=== PATIENT | male | born 1985 | race Caucasian/White ===

== ENCOUNTER 2018-12-26 06:57 | Emergency (ER) | payer OTHER ==
--- NOTE | 2018-12-26 10:47 | ER Document Report ---
ED Extremity Problem, Lower - General Chief Complaint: Knee Pain Stated Complaint: LEFT KNEE PAIN Time Seen by Provider: 12/26/18 10:33 Notes: 33-year-old overall healthy male presents to the emergency department with chief complaint of left knee pain, redness, swelling, warmth. This is been going on for 3 to 4 days. He states the pain is worsening. There is no injury or no trauma sustained. He is able to bear weight on it and he is able to bend his knee slightly although it is limited by pain. He denies fevers, chills, weakness, dizziness or lightheadedness, chest pain or shortness of breath, abdominal pain, nausea or vomiting. He states he was seen at [facility] couple months ago for a similar problem with his left MTP, was given steroids, and the symptoms resolved. No other complaints TRAVEL OUTSIDE OF THE [place] IN LAST 30 DAYS: No Past Medical History - Social History Smoking Status: Never Smoker Chew tobacco use (# tins/day): No Frequency of alcohol use: None Drug Abuse: None Family History: None Patient has suicidal ideation: No Patient has homicidal ideation: No Renal/ Medical History: Denies: Hx Peritoneal Dialysis Review of Systems - Review of Systems Constitutional: See HPI EENT: No symptoms reported Cardiovascular: See HPI Respiratory: See HPI Gastrointestinal: See HPI Genitourinary: No symptoms reported Male Genitourinary: No symptoms reported Musculoskeletal: See HPI Skin: See HPI Hematologic/Lymphatic: No symptoms reported Neurological/Psychological: No symptoms reported Physical Exam - Vital signs Vitals: Temp Pulse Resp BP Pulse Ox 97.9 F 82 16 157/104 H 100 12/26/18 07:02 12/26/18 07:02 12/26/18 07:02 12/26/18 07:02 12/26/18 07:02 - Notes Notes: PHYSICAL EXAMINATION: Reviewed vital signs and charting by RN GENERAL: Alert, interacts well. No acute distress. HEAD: Normocephalic, atraumatic. EYES: Pupils equal, round. Extraocular movements intact. ENT: Oral mucosa moist, tongue midline. NECK: Full range of motion. Supple. Trachea midline. LUNGS: Clear to auscultation bilaterally, no wheezes, rales, or rhonchi. No respiratory distress. HEART: Regular rate and rhythm. No murmur ABDOMEN: soft, non-tender. No distention. Bowel sounds present EXTREMITIES: Moves all 4 extremities spontaneously. Left knee with edema, erythema, warmth, limited range of motion but he is able to bend his knee to about 45 degrees PSYCH: Normal affect, normal mood. SKIN: Warm, dry, normal turgor. No rashes or lesions noted. Course - Re-evaluation Re-evalutation: 12/26/18 10:46 Overall well-appearing. At this time I do not suspect septic arthritis as patient is able to move his knee and he is afebrile. I have ordered some basic lab work and I did add a uric acid though I know this is of limited diagnostic value. But based on clinical diagnostic rules for gout I will use this as I have a high suspicion for a gout attack. I offered patient some basic pain control but he denied. 12/26/18 11:43 Lab work all mostly unremarkable, patient has a very mild leukocytosis but probably due to stress reaction do not suspect it is due to infectious etiology. Uric acid level elevated at 11.8. So I will go ahead and treat with a course of steroids and have him follow-up with med first. Could possibly represent a g out attack and I recommended that he get definitive lab testing 2 weeks after the inflammation has subsided. Vital signs are within normal limits and patient is stable for discharge. - Vital Signs Vital signs: Temp Pulse Resp BP Pulse Ox 97.9 F 82 16 157/104 H 100 12/26/18 07:02 12/26/18 07:02 12/26/18 07:02 12/26/18 07:02 12/26/18 07:02 - Laboratory Result Diagrams: 12/26/18 10:57 12/26/18 10:57 Laboratory results interpreted by me: 12/26/18 12/26/18 10:57 10:57 WBC 11.6 H Seg Neutrophils % 80.3 H Lymphocytes % 12.5 L Absolute Neutrophils 9.3 H Uric Acid 11.9 H Discharge - Discharge Clinical Impression: Swelling of left knee joint Left knee pain Qualifiers: Chronicity: acute Qualified Code(s): M25.562 - Pain in left knee Condition: Good Disposition: HOME, SELF-CARE Additional Instructions: You were seen in the emergency department this afternoon for left knee swelling, warmth, and pain. Your lab work was all reassuring and the uric acid level was elevated but, again, as we discussed this is not the best time to test for it even though it helped with the clinical decision-making rules. Therefore, we are going to treat you with steroids like your previous inflammation of your foot. As recommended about 2 weeks after this flareup is completely subsided is the best time to get lab work to determine if this is indeed gout or not. If you develop fever, worsening redness in your knee that spreads, you cannot move your knee at all with maximum effort, or you have any other concerning symptoms please immediately return to the emergency department as this could be concerning for an infected joint. Prescriptions: Prednisone [Deltasone 20 mg Tablet] 3 tab PO DAILY 5 Days tablet
[2018-12-26 11:19] LABS: ABSOLUTE LYMPHOCYTES (AUTO) 1.5 10^3/uL (0.5-4.7); ABSOLUTE MONOCYTES (AUTO) 0.8 10^3/uL (0.1-1.4); ABSOLUTE NEUT (AUTO) 9.3 10^3/uL (1.7-8.2); BASOPHILS % (AUTO) 0.3 % (0-2); EOSINOPHILS % (AUTO) 0.4 % (0-6); HEMATOCRIT 47.1 % (37.9-51.0); LYMPHOCYTES % (AUTO) 12.5 % (13-45); MEAN CORPUSCULAR HEMOGLOBIN 29.7 pg (27.0-33.4); MEAN CORPUSCULAR VOLUME 87 fl (80-97); MONOCYTES % (AUTO) 6.5 % (3-13); PLATELET COUNT 254 10^3/uL (150-450); RED BLOOD COUNT 5.39 10^6/uL (4.35-5.55); RED CELL DISTRIBUTION WIDTH 13.7 % (11.5-14.0); SEGMENTED NEUTROPHILS % (AUTO) 80.3 % (42-78); TOTAL CELLS COUNTED % (AUTO) 100 %; WHITE BLOOD COUNT 11.6 10^3/uL (4.0-10.5)
[2018-12-26 11:31] LABS: ANION GAP 12 (5-19); BLOOD UREA NITROGEN 10 mg/dL (7-20); CARBON DIOXIDE 29 mmol/L (22-30); CHLORIDE 101 mmol/L (98-107); GLUCOSE 95 mg/dL (75-110); SODIUM 141.6 mmol/L (137-145); URIC ACID 11.9 mg/dL (3.5-8.5)
[2018-12-26] MEDS ORDERED: PREDNISONE 20 MG TABLET PO ONE (11:42)
[2018-12-26 12:03] VITALS: BP 142/90
== END 2018-12-26 11:55 | disposition home or self-care (01) ==
LOC: ER 06:57
DX: M25.562 Pain in left knee (principal); M25.462 Effusion, left knee; L53.9 Erythematous condition, unspecified; D72.829 Elevated white blood cell count, unspecified
CPT/HCPCS: 99283; 36415; 84550; 85025; 80048; J7512